=== PATIENT | male | born 1990 | race African-American/Black ===

== ENCOUNTER 2017-02-26 23:10 | Emergency (ER) | payer SELFPAY ==
[~2017-02-26] VITALS: Ht 177.8 cm; Wt 90.7 kg
[2017-02-27 01:39] VITALS: BP 145/84
== END 2017-02-27 01:39 | disposition home or self-care (01) ==
LOC: ED 23:10
DX: L03.211 Cellulitis of face (principal); H05.012 Cellulitis of left orbit; L73.9 Follicular disorder, unspecified
CPT/HCPCS: J0690; J1885